=== PATIENT | male | born 1960 | race African-American/Black ===

== ENCOUNTER 2023-05-26 19:00 | Emergency (ER) | payer SELFPAY ==
[~2023-05-26] VITALS: Ht 182.9 cm; Wt 78.0 kg
[2023-05-26 19:21] VITALS: BP 179/86; PULSE 99; RESP 16; TEMP 98.6; O2SAT 100
== END 2023-05-27 10:48 | disposition home or self-care (01) ==
LOC: ER 19:00
DX: E16.2 Hypoglycemia, unspecified (principal); E11.9 Type 2 diabetes mellitus without complications; F19.90 Other psychoactive substance use, unspecified, uncomplicated; Z98.890 Other specified postprocedural states
CPT/HCPCS: 99281